=== PATIENT | male | born 1945 | race Caucasian/White ===

== ENCOUNTER 2024-10-27 22:38 | Emergency (ER) | payer MEDICARE, SELFPAY ==
[2024-10-27 22:44] VITALS: BP 141/70; BP 156/88; PULSE 74; PULSE 75; RESP 20; TEMP 36.7; O2SAT 100; O2SAT 98; BMI 23.5
--- NOTE | 2024-10-27 23:33 | ED_ITS ---
HPI - Eye Problem General Chief complaint: Eye Problems Stated complaint: complications following cataract surgery Time Seen by Provider: 10/27/24 23:31 Source: patient Mode of arrival: ambulatory Limitations: no limitations History of Present Illness ED Provider: HPI Narrative: Patient apparently had cataract surgery earlier today in left eye ketorolac eyedrops was prescribed patient has since removed the dressing unable to open the eye because of irritation patient had surgery in the other eye last week without any complications patient's vision is normal will discharge from the eyes Related Data Allergies Allergy/AdvReac Type Severity Reaction Status Date / Time No Known Allergies Allergy Verified 10/27/24 22:48 Review of Systems Review of Systems: Yes all other systems are reviewed and are negative PMFSH Past Medical History Medical History HTN (hypertension) Social History Social History Smoked in Last 30 Days: Yes Use of substances other than those prescribed or required for medical reasons: No Advance Directives: Yes Advance Directives on File: No Physical Exam Vital Signs: Vital Signs: Last Vital Signs Temp 98.1 F 10/27/24 22:44 Pulse 74 10/27/24 22:44 Resp 20 10/27/24 22:44 BP 141/70 H 10/27/24 22:44 Pulse Ox 98 10/27/24 22:44 O2 Del Method Room Air 10/27/24 22:44 BMI result Body Mass Index 23.5 Appearance: Alert. Oriented X3. No acute distress. EYES: Postsurgical left pupil dilated but slightly reaction no foreign body seen ENT: Pharynx normal. Oral Mucosa moist Neck: Normal inspection. Neck supple. CVS: Normal heart rate and rhythm. Pulses normal. Respiratory: No respiratory distress. Equal air entry bilateral, no wheezing/rales/rhonchi Skin: Skin warm and dry. Normal skin color. Normal skin turgor. Extremities: No lower extremity edema. Neuro: Oriented X 3. Medical Decision Making Medical Decision Making MDM Narrative: Tetracaine eyedrops was placed in the left eye and patient was able to open the eyes without any significant pain vision is normal will discharge patient home advised to continue ketorolac eyedrops and follow with electric motor winder Discharge Plan Discharge Clinical Impression: Status post cataract surgery Patient Disposition: Home, Self-Care Instructions: Cataract Removal (DC) Additional Instructions: Continue to use your eye drops as prescribed by your electric motor winder Call your electric motor winder in a.m. for follow up Print Language: Armenian
[2024-10-28 00:50] VITALS: BP 141/70; PULSE 74; RESP 20; TEMP 36.7; O2SAT 98
== END 2024-10-28 00:51 | disposition home or self-care (01) ==
PROVIDERS: Emergency Provider Internal Medicine
DX: H57.13 Ocular pain, bilateral (principal)
CPT/HCPCS: 99282; 99283